=== PATIENT | female | born 1965 | race Caucasian/White ===

== ENCOUNTER 2024-09-27 07:21 | Day surgery (SDC) | payer MEDICARE, OTHER ==
[2024-09-27] VITALS (7 sets, daily range): BP systolic 106–143; BP diastolic 39–85; PULSE 67–79; RESP 12–20; TEMP 97.7; O2SAT 97–99
[~2024-09-27] VITALS: Ht 165.1 cm; Wt 82.7 kg
[~2024-09-27 07:21] MED LIST: CLON1TAB12; HYDR-3965 PO; LYCO1CAP2 PO; ONDA-243 PO; POTA15TA11 PO
[2024-09-27] MEDS ORDERED: simethicone 40mg/0.6ml oral drops 30ml ONE (09:33)
[2024-09-27] MEDS ORDERED: fentaNYL/PF 50MCG/1 ML 2ML syringe ONE (09:34)
[2024-09-27] MEDS ORDERED: midazolam 1 mg/ML 2ml injection ONE (09:34)
== END 2024-09-27 10:45 | disposition home or self-care (01) ==
LOC: GI LAB 07:21
PROVIDERS: ATTEND Internal Medicine Gastroenterology
DX: K21.00 Gastro-esophageal reflux disease with esophagitis, without bleeding (principal); K31.7 Polyp of stomach and duodenum; K29.70 Gastritis, unspecified, without bleeding; Z87.891 Personal history of nicotine dependence; Z79.899 Other long term (current) drug therapy; Z98.890 Other specified postprocedural states
CPT/HCPCS: 43239; 88305; 88313; 88342; J2250; J3010; J7030; Z7512; A4620